=== PATIENT | female | born 1990 | race Hispanic/Latino ===

== ENCOUNTER 2018-02-13 13:40 | Emergency (ER) | payer SELFPAY ==
[~2018-02-13] VITALS: Ht 147.3 cm; Wt 40.8 kg
[2018-02-13] MEDS ORDERED: ONDANSETRON HCL 4 MG ORAL DISINTEGRATING TAB PO ONE (14:15)
[2018-02-13] MEDS ORDERED: ONDANSETRON HCL 4 MG ORAL DISINTEGRATING TAB ONE (14:21)
[2018-02-13] MEDS ORDERED: NIFEDIPINE CR 30 MG TAB PO ONE (14:30)
[2018-02-13 14:36] LABS: BASOPHILS % 0.6 % (0.0-1.0); EOSINOPHILS # (AUTO) 0.2 (0.0-0.4); EOSINOPHILS % 3.5 % (0.0-6.0); HEMATOCRIT 26.3 % (34.2-44.1); LYMPHOCYTES # (AUTO) 1.3 (1.0-3.2); LYMPHOCYTES % 19.5 % (18.0-39.1); MEAN CORPUSCULAR HEMOGLOBIN 29.2 pg (28-32); MEAN CORPUSCULAR HGB CONC 34.2 g/dL (31-35); MEAN CORPUSCULAR VOLUME 85.4 fL (81-99); MONOCYTES # (AUTO) 0.4 (0.2-0.8); MONOCYTES % 6.5 % (4.4-11.3); NEUTROPHILS # (AUTO) 4.6 (2.1-6.9); NEUTROPHILS % 69.3 % (38.7-80.0); PLATELET COUNT 128 x10e3/uL (140-360); RED BLOOD COUNT 3.08 x10e6/uL (3.6-5.1); RED CELL DISTRIBUTION WIDTH 13.7 % (11.7-14.4)
[2018-02-13 14:56] LABS: ALBUMIN 3.4 g/dL (3.5-5.0); ALBUMIN/GLOBULIN RATIO 0.9 (0.8-2.0); ANION GAP 19.8 mmol/L (8-16); CREATININE, SERUM 10.19 mg/dL (0.57-1.11); MAGNESIUM 2.2 MG/DL (1.3-2.1)
[2018-02-13 15:03] LABS: CREATINE KINASE MB 0.5 ng/mL (0-5.0)
[2018-02-13 15:04] LABS: POTASSIUM 5.8 mmol/L (3.5-5.1)
[2018-02-13] MEDS ORDERED: SOD POLYSTYRENE SULFONATE SUSP 15 GM/60 ML BTL PO ONE (16:45)
[2018-02-13] MEDS ORDERED: HYDRALAZINE HCL 20 MG/ML VIAL IV ONE (18:45)
--- NOTE | 2018-02-13 19:00 | Diagnostic Imaging Report ---
EXAMINATION: CHEST SINGLE (PORTABLE) INDICATION: Shortness of breath. COMPARISON: None FINDINGS: TUBES and LINES: None. LUNGS: Bilateral pulmonary venous congestion and early alveolar pulmonary edema. PLEURA: No pleural effusion or pneumothorax. HEART AND MEDIASTINUM: The cardiac silhouette is moderately enlarged. BONES AND SOFT TISSUES: No acute osseous lesion. Soft tissues are unremarkable. UPPER ABDOMEN: No free air under the diaphragm. IMPRESSION: Bilateral pulmonary venous congestion and early pulmonary edema. Signed by: Dr. Gabbi Lozoya M.D. on 02/13/2018 6:56 PM
[2018-02-13] MEDS ORDERED: MORPHINE SULFATE 2 MG/ML SYR IV STA (19:31)
[2018-02-13] MEDS ORDERED: MORPHINE SULFATE INJ 4 MG/ML INJ IV ONE (20:00)
[2018-02-13 20:21] VITALS: BP 157/98
== END 2018-02-13 20:40 | disposition home or self-care (01) ==
LOC: ER 13:40
DX: R51 Headache (principal); E87.5 Hyperkalemia; I12.0 Hypertensive chronic kidney disease with stage 5 chronic kidney disease or end stage renal disease; N18.6 End stage renal disease; Z99.2 Dependence on renal dialysis
CPT/HCPCS: 36415; 71045; 80053; 82550; 82553; 83735; 84100; 84484; 84702; 85025; 93005; 99283; J0360; J2270; Q0162